=== PATIENT | female | born 1995 | race Caucasian/White ===

== ENCOUNTER 2024-09-19 08:23 | Emergency (ER) | payer MEDICAID, SELFPAY ==
[2024-09-19 08:24] VITALS: BMI 19.7
[2024-09-19 08:34] VITALS: BP 117/79; PULSE 119; RESP 15; TEMP 36.7; O2SAT 96
--- NOTE | 2024-09-19 08:42 | EDNOTE_ITS ---
<Statement entered by Sara Man MD - 09/19/24 15:15> As co-signing physician, I was present and available for consult prn. I concur with the plan and care as documented by the midlevel provider. Nausea/Vomit./Diarrhea-RME/HPI General Chief complaint: Nausea/Vomiting/Diarrhea Stated complaint: VOMITING 10 WEEKS Time Seen by Provider: 09/19/24 08:25 Source: patient Arrival date/time: 09/19/24 08:23 29-year-old female with no known medical history presents to the emergency room with a chief complaint of vomiting x 3 days. Patient states she is currently 10 weeks . Patient denies any vaginal bleeding, abdominal pain. Mode of arrival: ambulatory Limitations: no limitations Related Data Previous Rx's ?Medication ?Instructions ?Recorded docusate sodium 100 mg capsule 100 mg PO BID #60 caps 06/11/22 (Colace) ibuprofen 600 mg tablet 600 mg PO Q6H PRN pain #90 t abs 06/11/22 lanolin 50 % topical ointment 1 applic topical TID PRN skin 06/11/22 irritation #15 tubes ondansetron 4 mg disintegrating 4 mg PO Q8H PRN nausea and 09/19/24 tablet vomiting #14 tabs Allergies Allergy/AdvReac Type Severity Reaction Status Date / Time No Known Allergies Allergy Verified 09/19/24 08:24 Review of Systems Review of Systems Systems Reviewed: All systems reviewed, normal except as documented Constitutional Constitutional: Reports system reviewed and no additional complaints, except as documented, Denies fatigue, Denies fever(s), Denies headache(s) and Denies weakness Eyes Eyes: Reports system reviewed and no additional complaints, except as documented, Denies blurry vision and Denies change in vision ENT Ears, Nose, Mouth, and Throat: Reports system reviewed and no additional complaints, except as documented, Denies otalgia, Denies headache(s), Denies nasal congestion, Denies throat swelling and Denies vertigo Cardiovascular Cardiovascular: Reports system reviewed and no additional complaints, except as documented, Denies chest pain, Denies dyspnea and Denies dyspnea on exertion Respiratory Respiratory: Reports system reviewed and no additional complaints, except as documented, Denies chest congestion, Denies cough, Denies dyspnea, Denies dyspnea on exertion and Denies wheezing Gastrointestinal Gastrointestinal: Reports system reviewed and no additional complaints, except as documented, Denies abdominal pain, Denies cramping, Reports nausea and Reports vomiting Genitourinary Genitourinary: Reports system reviewed and no additional complaints, except as documented Musculoskeletal Musculoskeletal: Reports system reviewed and no additional complaints, except as documented and Denies back pain Integumentary/Breasts Skin/Breast: Reports system reviewed and no additional complaints, except as documented and Denies wounds Neurologic Neurologic: Reports system reviewed and no additional complaints, except as documented, Denies confusion, Denies headache(s), Denies lack of coordination, Denies vertigo and Denies weakness Psychiatric Psychiatric: Reports system reviewed and no additional complaints, except as documented, Denies anxiety, Denies confusion, Denies depression, Denies paranoia, Denies suicidal ideation and Denies tactile hallucinations Endocrine Endocrine: Reports system reviewed and no additional complaints, except as documented and Denies fatigue Hematologic/Lymphatic Hematologic/Lymphatic: Reports system reviewed and no additional complaints, except as documented and Denies lymphadenopathy Allergic/Immunologic Allergic/Immunologic: Reports system reviewed and no additional complaints, except as documented, Denies throat swelling, Denies urticaria and Denies wheezing ED Exam General Limitations: Present no limitations General appearance: Present alert and in no apparent distress Head Head exam: Present atraumatic Eye Eye exam: Present normal appearance, PERRL and EOMI ENT ENT exam: Present normal exam, normal oropharynx and mucous membranes moist Neck Neck exam: Present normal inspection, full ROM and trachea midline Chest Chest inspection: Present normal inspection and symmetric chest wall rise Respiratory Respiratory exam: Present normal lung sounds bilaterally Cardiovascular Cardiovascular exam: Present regular rate, normal rhythm and normal heart sounds Abdominal Exam Abdominal exam: Present soft and normal bowel sounds; Absent distention, tenderness, guarding, rebound or rigidity Extremities Exam Extremities exam: Present normal inspection and full ROM Back Exam Back exam: Present normal inspection and full ROM Neurological Exam Neurological exam: Present alert, oriented X3 and CN II-XII intact Psychiatric Psychiatric exam: Present normal affect and normal mood Skin Skin exam: Present warm, dry, intact and normal color Course Quality Measures none Orders Category Date Time Status Insert IV NOW Care 09/19/24 10:12 Completed US OB <= 14 weeks fetus Stat Exams 09/19/24 10:12 Completed US gall bladder Stat Exams 09/19/24 10:12 Completed CBC Stat Lab 09/19/24 08:58 Completed CMP [Comprehensive Metabolic Panel] Stat Lab 09/19/24 08:58 Completed UA, C/S IF [Urinalysis, C/S if Indicated] Stat Lab 09/19/24 08:55 Completed Ondansetron Inj [Zofran Inj] Med 09/19/24 13:17 Discontinued 4 mg IV X1 ONE Ondansetron Odt [Zofran Odt] Med 09/19/24 08:41 Discontinued 4 mg PO X1 ONE Sodium Chloride 0.9% 1000 ml [Ns] 1,000 ml Med 09/19/24 10:12 Discontinued IV 999 mls/hr Vital Signs Vital signs: Vital Signs Temperature 98.0 F 09/19/24 08:34 Pulse Rate 119 H 09/19/24 08:34 Respiratory Rate 15 09/19/24 08:34 Blood Pressure 117/79 09/19/24 08:34 Pulse Oximetry (%) 96 09/19/24 08:34 Oxygen Delivery Method Room Air 09/19/24 08:34 O2 saturation 96% within normal limits Nausea/Vomiting/Diarrhea MDM Narrative MDM Narrative:: 29-year-old female with no known medical history presents to the emergency room with a chief complaint of vomiting x 3 days. Patient states she is currently 10 weeks . Patient denies any vaginal bleeding, abdominal pain. Patient is hemodynamically stable and in no apparent distress Physical examination shows generalized abdominal pain with palpation. Patient states she has had multiple episodes of vomiting the last few days. CBC showed some leukocytosis. The patient's urine was negative and the leukocytosis can be due to her severe vomiting. CMP showed some hyponatremia. A liter of normal saline was given as well as some Zofran. Patient was reevaluated in 2 hours with significant improvement to her symptoms. Due to the elevated bilirubin and bilirubin in her urine and ultrasound of the gallbladder was completed and was within normal limits. An ultrasound of her was completed to rule out any molar or ectopic and at this time there was an empty gestational sac but radiologist recommends short-term follow-up. Patient was educated to return in the next 48 to 72 hours for recheck on her . At this time the patient denies any vaginal bleeding. Patient was discharged and educated to follow-up with primary care provider in the next 24 to 48 hours and return to the emergency room for any evidence of worsening signs or symptoms Patient data External records reviewed:: [facility] previous records Clinical information provided by:: patient Social determinants that could affect healthcare access:: none Patient has the following chronic illnesses:: No chronic illness How is presenting disease/condition affected by chronic disease/condition?: no chronic disease Evaluation data The following diagnostics were reviewed and interpreted by me:: lab results and radiology exam(s) Lab and/or radiology exams considered but not ordered:: Labs and radiology exams considered and ordered Interpretation Summary: N/A Medications / Prescriptions Medications / Prescriptions considered but not ordered:: Medication given Medication administrations:: Medication Administration History Discontinued Medications Sodium Chloride (Ns) 1,000 mls @ 999 mls/hr IV .Q1H1M ONE Stop: 09/19/24 11:12 Last Infusion: 09/19/24 11:30 Dose: Infused Documented By: Admin: 09/19/24 10:29 Dose: 999 mls/hr Documented By: SHAZIA Ondansetron HCl (Ondansetron Odt 4 Mg Tabrap) 4 mg PO X1 ONE; Protocol Stop: 09/19/24 08:42 Last Admin: 09/19/24 08:57 Dose: 4 mg Documented By: LUANA Ondansetron HCl (Ondansetron Inj 2 Mg/Ml Inj 2 Ml) 4 mg IV X1 ONE; Protocol Stop: 09/19/24 13:18 Last Admin: 09/19/24 13:24 Dose: 4 mg Documented By: SHAZIA Medication given Consultations Consultation(s) initiated? (list below): No Diagnosis Nausea Differential Diagnosis: traveler's diarrhea, food poisoning, gastroenteritis, dehydration and other (Hyperemesis gravidarum) Most likely diagnosis given after review of the tests above:: Hyperemesis gravidarum Admission Indicated Admission indicated?: not indicated Admission Request Was there a request for admission?: No Disposition Plan Disposition Plan: Discharge Discharge Attestation Discharge Attestation: The patient and all family members were given an opportunity to ask questions and understood the discharge instructions. Discharge instructions specifically effects, indications for sooner follow up or return to the emergency department, and the expected course of current diagnosis. Patient condition: Stable Discharge Plan Plan Patient Disposition: HOME (Self Care) Disposition Comment: Stable Prescriptions/Referrals Prescriptions/Med Rec: New ondansetron 4 mg tablet,disintegrating 4 mg PO Q8H PRN (Reason: nausea and vomiting) Qty: 14 0RF No Action docusate sodium [Colace] 100 mg capsule 100 mg PO BID Qty: 60 0RF ibuprofen 600 mg tablet 600 mg PO Q6H PRN (Reason: pain) Qty: 90 0RF lanolin 50 % ointment 1 applic topical TID PRN (Reason: skin irritation) Qty: 15 0RF Referrals: Abigail Castro PA-C [Primary Care Provider] - In 1 week Problem List Clinical Impression: Hyperemesis gravidarum Patient/Caregiver Discharge Instructions Education Materials: Severe Morning Sickness ..., ED Hyperemesis Gravidarum Additional Instructions: Please follow-up with your primary care provider in the next 24 to 48 hours. Medication was sent to your pharmacy to help you with your nausea and your vomiting. This medication seem to work during your stay here in the emergency room. Our radiologist recommends a repeat OB ultrasound ultrasound in the next 48 to 72 hours. For any evidence of worsening signs or symptoms return to the emergency room immediately Print Language: Burundian Stand Alone Forms: Sharon Award Info., Patient Portal Info Letter RAVINDER/KARINA Supervising Physician RAVINDER/KARINA Supervising Physician: Dr. MAN
[2024-09-19] MEDS: ONDANSETRON ODT 4 MG TABRAP PO (08:57)
[2024-09-19 09:09] LABS: Collection Type, Urine Clean Catch
[2024-09-19 09:17] LABS: Basophils % (Auto) 0 % (0-2.5); Eosinophils % (Auto) 0 % (0-10); Hematocrit 45.6 % (36.0-46.0); Hemoglobin 16.3 g/dL (12.0-16.0); Immature Granulocytes % (Auto) 0 % (0-0); Immature Granulocytes Auto 0.08 Thou/mm3 (0.00-0.00); Lymphocytes # (Auto) 0.5 Thou/mm3 (1.0-4.8); Lymphocytes % (Auto) 3 % (10-50); Mean Corpuscular HGB Conc 35.7 g/dl (31.0-37.0); Mean Corpuscular Hemoglobin 31.1 pg (25.0-35.0); Mean Corpuscular Volume 87 fL (80-100); Monocytes % (Auto) 6 % (0-12); Neutrophils # (Auto) 16.5 Thou/mm3 (1.8-7.7); Neutrophils % (Auto) 91 % (37-80); Nucleated Red Blood Cell % 0 /100 WBC (0); Platelet Count 341 Thou/mm3 (140-440); RDW Standard Deviation 35.7 fL (36.4-46.3); Red Blood Count 5.24 Miln/mm3 (4.00-5.20); White Blood Count 18.2 Thou/mm3 (3.6-11.0)
[2024-09-19 09:40] LABS: Alanine Aminotransferase 14 U/L (10-49); Albumin, Serum 5.9 gm/dL (3.5-5.0); Albumin/Globulin Ratio 1.9 (1.2-2.2); Alkaline Phosphatase 69 U/L (46-116); Anion Gap 20 (7-16); Aspartate Amino Transferase 17 U/L (0-34); BUN/Creatinine Ratio 19 Ratio (12-20); Bilirubin,Total 3.5 mg/dL (0.3-1.2); Blood Urea Nitrogen 19 mg/dL (9-23); Calcium 10.6 mg/dL (8.3-10.6); Calcium (Corrected) 10.6 mg/dL (8.5-10.1); Carbon Dioxide 17.5 mMol/L (20.0-31.0); Chloride 98 mMol/L (98-107); Estimated Creatinine Clearance 65.4 mL/min (>60); Globulin 3.1 gm/dL (2.3-3.5); Glucose 198 mg/dL (74-106); Osmolality,Calculated 278 (275-295); Potassium 3.4 mMol/L (3.4-5.1); Sodium 135 mMol/L (136-145); eGFR > 60 See Note
[2024-09-19 09:55] LABS: Bilirubin,Urine 1+ (Negative); Blood,Urine Trace (Negative); Clarity,Urine Clear (Clear/Hazy); Color,Urine Yellow (Lt Yel-Yel); Culture Indicated,Urine Not Indicated; Glucose, Urine Negative (Negative); Hyaline Casts,Urine 3 /hpf (0-1); Ketones,Urine 4+ (Negative); Leukocyte Esterase,Urine Negative (Negative); Nitrite,Urine Negative (Negative); Protein,Urine 2+ (Neg - Trace); RBC,Urine 5 /hpf (0-3); Specific Gravity,Urine 1.027 (1.001-1.035); Squamous Epithelial Cell,Urine 4 /hpf (0-5); Urobilinogen,Urine Negative mg/dL (0.0-1.0); WBC,Urine 1 /hpf (0-5)
--- NOTE | 2024-09-19 10:12 | XR_ITS ---
Examination: Complete OB ultrasound, less than 14 weeks, transabdominal Date and time of exam: September 19, 2024 1150 hours INDICATIONS: Left upper abdominal pain and vomiting beginning 3 hours ago Technique: Obstetrical ultrasound images less than 14 weeks performed via transabdominal imaging Findings: Uterus 9.4 cm with intrauterine gestational sac 1.5 cm corresponding to 6 weeks 2 days gestational age No pole, no cardiac activity Right ovary 2.5 cm arterial flow Left ovary 2.5 cm arterial flow IMPRESSION: Empty intrauterine gestational sac corresponding to 6 weeks 2 days gestational age Recommend transvaginal pelvic sonography follow-up to confirm viability
--- NOTE | 2024-09-19 10:12 | XR_ITS ---
Examination: Abdomen sonogram, Limited Date and time of exam: September 19, 2024 at 1133 hours INDICATIONS: Left upper abdominal pain and vomiting beginning 3 days ago Technique: Real-time mosher scale transabdominal sonographic images of the upper abdomen obtained. Findings: Normal gallbladder Normal common bile duct 0.2 cm Pancreatic head 1.4 cm Liver 11.3 cm fatty infiltration Normal hepatopedal portal venous flow Patent IVC IMPRESSION: Normal gallbladder Fatty liver
[2024-09-19] MEDS: SODIUM CHLORIDE 0.9% 1000 ML 1,000 ML 999 ML IV (10:29)
[2024-09-19 10:45] VITALS: BP 135/83; PULSE 74; RESP 15; TEMP 36.8; O2SAT 99
[2024-09-19 12:00] VITALS: BP 116/68; PULSE 78; RESP 17; TEMP 37.1; O2SAT 99
[2024-09-19] MEDS: ONDANSETRON INJ 2 MG/ML INJ 2 ML 4 MG IV (13:24)
== END 2024-09-19 14:17 | disposition home or self-care (01) ==
PROVIDERS: Nurse Practitioner Family; Emergency Provider Emergency Medicine; PCP Physician Assistant
DX: O21.0 Mild hyperemesis gravidarum (principal); Z3A.10 10 weeks gestation of pregnancy
CPT/HCPCS: 36415; 76705; 76801; 80053; 81001; 85025; 96361; 96374; 99284; J2405; J7030; Q0162

== ENCOUNTER 2025-04-24 14:53 | Observation (INO) | payer MEDICAID, SELFPAY ==
[2025-04-24 14:55] VITALS: BP 112/69; RESP 100; RESP 16; TEMP 37
[2025-04-24 15:26] LABS: Collection Type, Urine Clean Catch
[2025-04-24 15:30] VITALS: BMI 25.4
[2025-04-24 15:40] LABS: ROM Kit Lot # 58106258
[2025-04-24 15:41] LABS: ROM Kit Exp Date# 04/11/28; ROM Swab Mixed By: ASTOA1; Rupture of Fetal Membranes Negative (Negative); Swb Mxed in Solvent 1 min? Yes
[2025-04-24 15:49] VITALS: BP 112/69; PULSE 116
[2025-04-24 16:22] LABS: Bacteria,Urine Rare; Bilirubin,Urine Negative (Negative); Blood,Urine Negative (Negative); Color,Urine Yellow (Lt Yel-Yel); Glucose, Urine Negative (Negative); Ketones,Urine Trace (Negative); Leukocyte Esterase,Urine Positive (Negative); Nitrite,Urine Negative (Negative); PH,Urine 6.0 (5.0-7.0); Protein,Urine 1+ (Neg - Trace); RBC,Urine 2 /hpf (0-3); Specific Gravity,Urine 1.030 (1.001-1.035); Squamous Epithelial Cell,Urine 8 /hpf (0-5); Urobilinogen,Urine 2.0 mg/dL (0.0-1.0); WBC,Urine 7 /hpf (0-5)
[2025-04-24 16:30] LABS: Amphetamine/Metham Scrn,Ur OB Negative (Negative); Benzoylecgonine Screen, Ur OB Negative (Negative); Opiate Screen,Urine OB Negative (Negative); THC Screen,Urine OB Positive (Negative)
[2025-04-24 16:31] LABS: THC U Confirm* See Sep Rpt
[2025-04-24 16:37] LABS: Clarity,Urine Hazy (Clear/Hazy)
[2025-04-25 11:41] LABS: BVAG Candida Positive (Negative); Bacterial Vaginosis Markers Negative (Negative); Candida glabrata Negative (Negative); Candida krusei PCR Negative (Negative); Trichomonas Negative (Negative)
== END 2025-04-24 17:05 | disposition home or self-care (01) ==
PROVIDERS: Admitting Provider Obstetrics & Gynecology; Visit Provider Obstetrics & Gynecology
DX: Z34.90 Encounter for supervision of normal pregnancy, unspecified, unspecified trimester (principal); Z3A.00 Weeks of gestation of pregnancy not specified
CPT/HCPCS: 59025; 59899; 80307; 81001; 81514; 84112; 87086

== ENCOUNTER 2025-05-02 19:19 | Observation (INO) | payer MEDICAID, SELFPAY ==
[2025-05-02] VITALS (27 sets, daily range): BP systolic 118; BP diastolic 72; PULSE 72–171; RESP 18–98; TEMP 36.7; O2SAT 83–100; BMI 25.0
[2025-05-02] MEDS: FLUCONAZOLE 150 MG TABLET PO (20:49)
[2025-05-02 22:30] LABS: ROM Kit Exp Date# 04/11/28; ROM Kit Lot # 58106258; ROM Swab Mixed By: CARMP2; Rupture of Fetal Membranes Negative (Negative); Swb Mxed in Solvent 1 min? Yes
== END 2025-05-02 23:05 | disposition home or self-care (01) ==
PROVIDERS: Admitting Provider Obstetrics & Gynecology; Visit Provider Obstetrics & Gynecology
DX: O47.1 False labor at or after 37 completed weeks of gestation (principal); Z3A.38 38 weeks gestation of pregnancy
CPT/HCPCS: 59025; 59899; 84112; 87081; A9270

== ENCOUNTER 2025-05-18 11:13 | Inpatient (IN) | payer MEDICAID, SELFPAY ==
[2025-05-18] VITALS (49 sets, daily range): BP systolic 110–131; BP diastolic 60–77; PULSE 68–214; RESP 16–97; TEMP 36.6–37.2; O2SAT 92–100; BMI 25.6
--- NOTE | 2025-05-18 11:37 | XR_ITS ---
Examination: Complete OB ultrasound greater than 14 weeks Date and time of exam: 05/18/2025 at 11:50 a.m. CLINICAL INDICATION: Vaginal bleeding Findings: Viable intrauterine single fetus with single amniotic sac The single fetus is in cephalic presentation. The bladder and kidneys and stomach and spine are all seen and appear normal. Three-vessel umbilical cord is noted. Placenta is located along the anterior wall of the mid body of uterus, there are prominent basal plate calcifications indicating a grade 3 placenta. heart rates 126 bpm estimated weight is 3669 g The biparietal diameter, head circumference, abdominal circumference and femur length are all consistent with gestational age of 39 weeks 1 day. Estimated date of delivery is May 24, 2025 . Impression: 1 normal-appearing single intrauterine fetus, currently 39 weeks 1 day gestational age, in cephalic presentation 2. The study is entirely normal. 3. The both right and left ovaries are obscured by overlying bowel gas and are not well visualized.
[2025-05-18 15:44] LABS: Basophils # (Auto) 0.0 Thou/mm3 (0.0-0.2); Basophils % (Auto) 0 % (0-2.5); Eosinophils # (Auto) 0.0 Thou/mm3 (0.0-0.5); Eosinophils % (Auto) 0 % (0-10); Hematocrit 33.0 % (36.0-46.0); Hemoglobin 11.1 g/dL (12.0-16.0); Immature Granulocytes Auto 0.06 Thou/mm3 (0.00-0.00); Lymphocytes # (Auto) 1.4 Thou/mm3 (1.0-4.8); Lymphocytes % (Auto) 13 % (10-50); Mean Corpuscular HGB Conc 33.6 g/dl (31.0-37.0); Mean Corpuscular Hemoglobin 29.5 pg (25.0-35.0); Mean Corpuscular Volume 88 fL (80-100); Monocytes # (Auto) 0.9 Thou/mm3 (0.0-0.8); Monocytes % (Auto) 8 % (0-12); Neutrophils # (Auto) 8.3 Thou/mm3 (1.8-7.7); Neutrophils % (Auto) 78 % (37-80); Nucleated Red Blood Cell # 0.00 Thou/mm3 (0.00-0.00); Nucleated Red Blood Cell % 0 /100 WBC (0); Platelet Count 294 Thou/mm3 (140-440); RDW Standard Deviation 40.6 fL (36.4-46.3); Red Blood Count 3.76 Miln/mm3 (4.00-5.20); White Blood Count 10.7 Thou/mm3 (3.6-11.0)
--- NOTE | 2025-05-18 15:55 | PD.LDHP ---
Documentation for date of: 05/18/25 OB Labor/Induct. HPI History of Present Illness Chief complaint: Vaginal bleeding, sent in from provider : 5 Para: 2 Term pregnancies: 2 pregnancies: 0 Living children: 2 History of Abortions: Spontaneous and Elective: 2 History of Vaginal deliveries: 2 History of sections: No History of : No FÁTIMA: 05/13/25 Gestational Age (weeks): 40 Gestational Age (days): 5 History of present illness: Patient is a 29-year-old -0-2-[address] Villarreal office where she where she has been receiving her care exclusively and told Dr. Rodriguez she had some bleeding after intercourse. He told her to come to labor and delivery. Patient is 40 5/7 weeks . Patient was 2 to 3 cm dilated on presentation. She has a history of vaginal delivery x 2 without complication in the past. She does not desire an epidural. History of Present Dating criteria: LMP confirmed by 2nd trimester US Adequate Care: Yes Ultrasounds: normal mid trimester US Obstetrical complications: none Medical complications: none Labs Maternal Blood Type: A Neg Labs: Positive: Rubella Titre, Negative: RPR, Hepatitis B, HIV, Chlamydia and Gonorrhea and Unknown: Herpes Type 1, Herpes Type 2, Group Beta Strep and Covid-19 Past Medical History Surgical History SURGICAL: Negative Section Past Medical History Comments PMH COMMENT: Patient denies any chronic medical problems including asthma diabetes or hypertension. She states she fell when she was 14 years old and compression fracture had a compression fraction of her back and wore a brace for 6 months but did not have surgery. She had a in 2018 of a male weighing 6 pounds 11 ounces she had an of another male in 2022 weighing 7 pounds 13 ounces. She denies problems with either delivery. Meds Home Medications and Allergies Home Medications ?Medication ?Instructions ?Recorded ?Confirmed ?Type No Known Home Medications 05/02/25 05/18/25 History Allergies Allergy/AdvReac Type Severity Reaction Status Date / Time No Known Allergies Allergy Verified 05/18/25 11:21 OB Exam Physical Exam Vital signs: Temp Pulse Resp BP Pulse Ox 97.9 F 80 18 124/77 98 05/18/25 11:21 05/18/25 11:21 05/18/25 11:21 05/18/25 11:21 05/18/25 13:33 Detailed Labor and Delivery Exam Effacement (%): 80 Cervix position: mid station: -2 Consistency: medium Presentation: Vertex Membranes: intact monitor accelerations: 15x15 monitor decelerations: None Contraction frequency (min): Every 3 to 5 minutes Tachysystole: No OB Results Labs 05/18/25 13:40 OB Assessment & Plan Assessment and Plan (1) Supervision of high risk in third trimester: Status: Acute Assessment and plan: Admit patient. Pain medication if desired. Look up group B strep (2) Rh negative status during : Status: Acute Assessment and plan: Patient status post RhoGAM during . Additional Plan Induction method: AROM Plan: anticipate NVD (2) Rh negative status during Qualifiers: Trimester: third trimester Qualified Code(s): O26.893 - Other specified related conditions, third trimester; Z67.91 - Unspecified blood type, Rh negative
[2025-05-18 16:43] LABS: Syphilis Reactive (Nonreactive)
[2025-05-18 16:44] LABS: MHATP/TP-PA* See Sep Rpt
--- NOTE | 2025-05-18 17:25 | PD.EVENT ---
Documentation for date of: 05/18/25 Event Note Event Note: Examined patient and performed in a ROM at 1645 clear fluid. Patient's cervix is 4 to 5 cm 80% -2 mid. IUPC placed. Anticipate .
[2025-05-18] MEDS: OXYTOCIN in NS 30 units 30 UNIT/500 ML BAG IV (18:42)
[2025-05-18] MEDS: OXYTOCIN in NS 20 units 20 UNIT/1,000 ML BAG 125 UNIT IV (19:20)
[2025-05-18] MEDS: LIDOCAINE HCL 1% 20 ML VIAL INFL (19:25)
[2025-05-18] MEDS: BENZO/LANO/ALOE (Dermoplast) 60 GM CAN 1 SPRAY TOP (19:35)
[2025-05-18] MEDS: IBUPROFEN TAB 400 MG TABLET 800 MG PO (19:36)
--- NOTE | 2025-05-18 21:48 | OBDSUM_ITS ---
Data (Álvarez) Data Hx Section: No Maternal Blood Type: A Neg Rubella Titre: Positive RPR: Non-reactive Labs: Negative: RPR, Hepatitis B, HIV, Chlamydia, Gonorrhea and Group Beta Strep : 5 Term: 2 : 0 Livin Abortions: Spontaneous & Theraputic: 2 Delivery Data (Álvarez) Labor Data Initiation of labor: Spontaneous Induction/Augmentation Agent: Pitocin ROM date: 05/18/25 ROM time: 16:48 Amniotic membrane rupture type: Spontaneous Amniotic fluid description: Clear Delivery Data EDC: 05/13/25 EDC calculated by:: LMP/early US confirmation Date of arrival to unit: 05/18/25 Onset of labor date: 05/18/25 Onset of labor time: 16:00 Complete dilation date: 05/18/25 Complete dilation time: 19:06 delivery date: 05/18/25 delivery time: 19:09 Gestational age (weeks): 40 Gestational age (days): 5 Placenta delivery date: 05/18/25 Placenta delivery time: 19:14 Stage 1 total time: Labor - Stage 1 Duration 3 hours and 6 minutes Delivered by: L[facility] ([facility]) Delivery nurse: Lsia Turcios RN [place] nurse: Simin Alexandra RN Robotics Mechanic at delivery: No Support person(s) at delivery: father of baby, pt's mother Other staff at delivery: Lu Lucero RN, Shanon Villaseñor RN, Nathalie Koroma RN, Guadalupe customer service engineer Method Delivery method: Normal Vaginal Delivery Presentation: Vertex position: OA Anesthesia Type Anesthesia Type: Local Anesthesia type: None Delivery Room Medications Delivery room medications: Pitocin 20 u IV Placenta Placenta delivery description: Spontaneous Cord blood sent to lab: Yes cord blood collection: Cord Blood Type Episiotomy Episiotomy description: None Lacerations #1: Labial: First-degree right labia minora laceration Perineal repair Sutures used for repair: 4.0 Chromic EBL Estimated blood loss (ml): 75 Umbilical Cord cord description: 3 Vessels, Nuchal Cord and True Knot Additional Procedures The patient is a 29-year-old -0-2-2 at 40 weeks 5/7 days presented to triage with some vaginal bleeding and was 2 to 3 cm dilated. As she was postdates, she was admitted. Once she was in a room, she was reexamined and was 4 to 5 cm dilated. The patient did not desire epidural and desired to go natural. I performed an amniotomy at approximately 1645 and placed an IUPC. The patient began getting quite uncomfortable around 1845. She was complete at 1900. She then pushed through 1-2 contractions delivering a liveborn female. Findings: Liveborn female in the [place]ANCIS[place] presentation with a loose nuchal cord x 1 and a true knot in her cord x 1. No meconium. Apgars were 8 and 9, weight was 7 pounds 2 ounces. As the baby was vigorous at , the baby was placed directly on mother's chest and delayed cord clamping was performed for approximately 3 minutes. The cord was then clamped and cut and the went to the warmer for evaluation and measurements and then was placed back on her mother's chest. The placenta was complete ,spontaneous, and grossly normal. The patient sustained a very small right labial minora laceration repaired with a single [id number] suture of 4-0 chromic under local anesthesia. Complications were none. Condition: both mom and were in stable condition the delivery room. EBL was 75 cc. Complications Complications: None Data (Álvarez) Data order: 1 's gender: Female Identification band number: [id number] weight (gms): 3230 g Weight (pounds): 7 lbs and 1.9 ozs [place] length: 49.53 cm 1 minute: 8 5 minutes: 9
[2025-05-18 22:54] LABS: Amphetamine/Metham Scrn,Ur OB Negative (Negative); Benzoylecgonine Screen, Ur OB Negative (Negative); Opiate Screen,Urine OB Negative (Negative); THC Screen,Urine OB Negative (Negative)
[2025-05-19 00:29] VITALS: BP 107/66; PULSE 86; RESP 12; TEMP 36.8; O2SAT 97
[2025-05-19] MEDS: DOCUSATE SOD 100 MG CAPSULE PO ×3 (00:47→20:49)
[2025-05-19 04:23] VITALS: BP 107/64; PULSE 78; RESP 14; TEMP 37.1; O2SAT 97
[2025-05-19 05:48] LABS: Basophils # (Auto) 0.1 Thou/mm3 (0.0-0.2); Basophils % (Auto) 0 % (0-2.5); Eosinophils # (Auto) 0.0 Thou/mm3 (0.0-0.5); Eosinophils % (Auto) 0 % (0-10); Hematocrit 31.2 % (36.0-46.0); Hemoglobin 10.4 g/dL (12.0-16.0); Immature Granulocytes Auto 0.05 Thou/mm3 (0.00-0.00); Lymphocytes # (Auto) 1.5 Thou/mm3 (1.0-4.8); Lymphocytes % (Auto) 12 % (10-50); Mean Corpuscular HGB Conc 33.3 g/dl (31.0-37.0); Mean Corpuscular Hemoglobin 29.4 pg (25.0-35.0); Mean Corpuscular Volume 88 fL (80-100); Monocytes # (Auto) 1.2 Thou/mm3 (0.0-0.8); Monocytes % (Auto) 10 % (0-12); Neutrophils # (Auto) 9.5 Thou/mm3 (1.8-7.7); Neutrophils % (Auto) 77 % (37-80); Nucleated Red Blood Cell # 0.00 Thou/mm3 (0.00-0.00); Nucleated Red Blood Cell % 0 /100 WBC (0); Platelet Count 258 Thou/mm3 (140-440); RDW Standard Deviation 40.4 fL (36.4-46.3); Red Blood Count 3.54 Miln/mm3 (4.00-5.20); White Blood Count 12.3 Thou/mm3 (3.6-11.0)
[2025-05-19 08:09] VITALS: BP 112/66; PULSE 77; RESP 16; TEMP 36.7; O2SAT 97
[2025-05-19] MEDS: IBUPROFEN TAB 400 MG TABLET 800 MG PO ×2 (08:52→20:49)
--- NOTE | 2025-05-19 09:05 | PD.LDPPPRG ---
Subjective Subjective Interval history: Delivery type: at 1800 last night Patient doing well this morning. No acute complaints. Ambulating, tolerating p.o., and voiding without difficulty. HTN/Pre-E screen negative: No CP, SOB, RASCON, visual changes, RUQ pain. : Yes Lochia: diminishing Bowel: Flatus + / BM + UOP: Voiding freely Exam Vital Signs Temp Pulse Resp BP Pulse Ox O2 Del Method 98.0 F 77 16 112/66 97 Room Air 05/19/25 08:09 05/19/25 08:09 05/19/25 08:09 05/19/25 08:09 05/19/25 08:09 05/19/25 08:09 Constitutional Constitutional: no acute distress Routine HEENT Exam Head: Present normocephalic and atraumatic Eye: Present EOMI and PERRL ENT: Present mucous membranes moist Routine Neck Exam Neck: Present supple and trachea midline Routine Respiratory Exam Respiratory: Present chest non-tender, lungs clear, normal breath sounds and no resp distress Routine Cardiovascular Exam Cardiovascular: Present RRR Routine Abdominal Exam Abdominal: Present soft and normoactive bowel sounds Routine Extremities Exam Extremities: Present full ROM Routine Skin Exam Skin: Present intact, dry and warm Routine Neurological Exam Neurological: Present alert, oriented X3 and CN II-XII intact Routine Psychiatric Exam Psychiatric: Present normal affect and normal thought process Objective Labs 05/19/25 05:09 Labs: Laboratory Results - last 24 hr 05/18/25 05/18/25 05/19/25 13:40 20:30 05:09 WBC 10.7 12.3 H RBC 3.76 L 3.54 L Hgb 11.1 L 10.4 L Hct 33.0 L 31.2 L MCV 88 88 MCH 29.5 29.4 MCHC 33.6 33.3 RDW Std Deviation 40.6 40.4 Plt Count 294 258 D Neut % (Auto) 78 77 Lymph % (Auto) 13 12 [place] % (Auto) 8 10 Eos % (Auto) 0 0 Baso % (Auto) 0 0 Neut # (Auto) 8.3 H 9.5 H Lymph # (Auto) 1.4 1.5 [place] # (Auto) 0.9 H 1.2 H Eos # (Auto) 0.0 0.0 Baso # (Auto) 0.0 0.1 Immature Gran # (Auto) 0.06 H 0.05 H Absolute Nucleated RBC 0.00 0.00 Immature Gran % 1 H 0 Nucleated RBC % 0 0 Urine Opiates Screen Negative U Amphetamin/Meth Scrn Negative U Cocaine Metab Screen Negative U Marijuana (THC) Screen Negative Syphilis Serology Reactive A Blood Type A Negative Antibody Screen NEGATIVE Blood Bank Wristband ID Yes Assessment & Plan Problem List (1) Supervision of high risk in third trimester: Status: Resolved (2) Rh negative status during : Status: Acute (3) Vaginal delivery: Status: Acute Assessment and plan: 1. Continue routine /post-op care 2. Labs reviewed, cbc appropriate 3. Remove dressing/Schulz 4. Encourage to ambulate, shower 5. Encourage PO intake, breast feeding 6. Anticipate discharge home at 24 hours Time Spent With Patient Time: Total time spent is greater than 50% in coordination of care (as documented) at patient's floor/unit and/or counseling patient:
--- NOTE | 2025-05-19 09:07 | PD.LDDS ---
DS: Providers Provider Date of admission: 05/18/25 13:47 Primary care physician: Physician No Primary/Family Admitting Provider: Lori Ca [facility] ([facility]) Attending Provider on Admission: Dominic Ruvalcaba MD Consults: 05/18/25 20:17 Referral Routine Comment: Attending Provider on DC: Dominic Ruvalcaba MD Discharging Provider: Dominic Ruvalcaba MD DS: Diagnosis Discharge Diagnosis (1) Vaginal delivery: Status: Acute (2) Rh negative status during : Status: Acute (3) care following vaginal delivery: Status: Acute Problem List Completed Was Problem List Reviewed/Reconciled?: Yes Summary/Hosp Course Brief History: Patient is a 29-year-old -0-2-[address] Villarreal office where she where she has been receiving her care exclusively and told Dr. Rodriguez she had some bleeding after intercourse. He told her to come to labor and delivery. Patient is 40 5/7 weeks . Patient was 2 to 3 cm dilated on presentation. She has a history of vaginal delivery x 2 without complication in the past. She does not desire an epidural. Peripartum Data Delivery Method: Normal Vaginal Delivery Episiotomy Description: None Time Spent with Patient Time attestation: Total time spent providing and/or coordinating discharge services: Exam Vital Signs Temp Pulse Resp BP Pulse Ox O2 Del Method 98.0 F 77 16 112/66 97 Room Air 05/19/25 08:09 05/19/25 08:09 05/19/25 08:09 05/19/25 08:09 05/19/25 08:09 05/19/25 08:09 Discharge Plan Plan Patient Disposition: HOME (Self Care) Disposition Comment: Please see Dr Villarreal for visit Patient condition on transfer: Stable Prescriptions/Referrals Prescriptions/Med Rec: New docusate sodium [Stool Softener] 100 mg capsule 100 mg PO QDAY 30 Days Qty: 30 0RF ibuprofen 600 mg tablet 600 mg PO Q6H MDD 4 PRN (Reason: fever or pain) 10 Days Qty: 40 0RF Referrals: No Primary/Family,Physician [Primary Care Provider] Tavo Villarreal MD [Referring Provider, Obstetrics] Patient/Caregiver Discharge Instructions Education Materials: Expressing Your Milk, After Delivery [place] Concerns, Breast Care After , Nutrition While , Understanding Depression, : Caring for Yourself, Feel Healthy After, Delivery After Stay Fit Print Language: Cymro Stand Alone Forms: Sharon Award Info., Patient Portal Info Letter Discharge Order Discharge Orders: Discharge (Routine); Ordered 05/19/25 Ordered By: Dominic Ruvalcaba Planned Discharge Date 05/19/25 (2) Rh negative status during Qualifiers: Trimester: third trimester Qualified Code(s): O26.893 - Other specified related conditions, third trimester; Z67.91 - Unspecified blood type, Rh negative
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
--- NOTE | 2025-05-19 09:31 | PC.NURSE ---
Cleared by dialysis social worker
[2025-05-19 11:26] VITALS: BP 112/75; PULSE 79; RESP 16; TEMP 36.7; O2SAT 97
[2025-05-19 15:59] VITALS: BP 101/62; PULSE 83; RESP 17; TEMP 36.8; O2SAT 99
--- NOTE | 2025-05-19 21:09 | PC.NURSE ---
Abhijit from lab called this nurse regarding patient's syphilis test which resulted quantitative RPR is non-reactive and TPA is reactive. (Dr. Ruvalcaba) made aware.
[2025-05-20 04:00] VITALS: BP 96/56; PULSE 83; RESP 18; TEMP 36.8; O2SAT 95
[2025-05-20 08:50] VITALS: BP 107/71; PULSE 99; RESP 16; TEMP 37; O2SAT 95
[2025-05-20] MEDS: DOCUSATE SOD 100 MG CAPSULE PO (08:57)
== END 2025-05-20 12:35 | disposition home or self-care (01) | DRG 560 ==
LOC: S4SX 20:11 → S4NX 20:21
PROVIDERS: Admitting Provider Obstetrics & Gynecology; Visit Provider Obstetrics & Gynecology
DX: O48.0 Post-term pregnancy (principal); O26.893 Other specified pregnancy related conditions, third trimester; Z67.11 Type A blood, Rh negative; Z3A.40 40 weeks gestation of pregnancy; Z37.0 Single live birth; O70.0 First degree perineal laceration during delivery; O69.81X0 Labor and delivery complicated by cord around neck, without compression, not applicable or unspecified
CPT/HCPCS: 36415; 59025; 59409; 76805; 80307; 85025; 86780; 86850; 86900; 86901; 94762; J2590; J3490; A9270

== ENCOUNTER 2025-05-25 15:33 | Emergency (ER) | payer MEDICAID, SELFPAY ==
[2025-05-25 15:49] VITALS: BP 142/82; PULSE 70; RESP 16; TEMP 37.5; O2SAT 97; BMI 23.8
--- NOTE | 2025-05-25 15:50 | XR_ITS ---
Examination: Venous duplex lower extremity sonogram, bilateral. Date and time of exam: May 25, 2025, 1607 hours INDICATIONS: Bilateral leg cramps 3 days 1 week Technique: Multiple sonographic images of the deep venous system have been obtained. B-mode/2-D grayscale imaging of vascular structures and Doppler spectral analysis (waveforms) and color performed Both legs are examined. Findings: Deep venous systems do not demonstrate abnormal echogenicity. All visualized deep veins exhibit compressibility. All visualized deep veins exhibit augmentation. Impression: Negative for deep vein thrombosis
--- NOTE | 2025-05-25 15:51 | PD.EDRME ---
Rapid Medical Screening Exam RME Arrival date/time: 05/25/25 15:33 29-year-old female presents to the Emergency Department today stating she is having abdominal cramping and pelvic cramping patient reports that she gave approximate 1 week ago Chief Complaint: Abdominal Pain Vital signs reviewed by provider: Yes Exam: On exam patient well-appearing does not appear ill or toxic Clinical Impression: Lab work and imaging obtained
--- NOTE | 2025-05-25 16:50 | XR_ITS ---
Examination: Pelvic ultrasound, transabdominal, complete Technique: Transabdominal ultrasound of the pelvis performed using grayscale imaging Date and time of exam: May 25, 2025, 1651 hours INDICATIONS: Pelvic cramping today, status post 1 week ago FINDINGS: Uterus 13.5 cm Thickened endometrium 0.6 cm in the fundal region, 4.06 x 1.91 x 2.97 in the lower uterine segment Right ovary 2.3 cm arterial flow Left ovary 2.8 cm arterial flow IMPRESSION: Recommend transvaginal pelvic sonography follow-up to confirm retained products of conception in the lower uterine segment
[2025-05-25 17:44] LABS: Basophils # (Auto) 0.1 Thou/mm3 (0.0-0.2); Basophils % (Auto) 1 % (0-2.5); Eosinophils # (Auto) 0.2 Thou/mm3 (0.0-0.5); Eosinophils % (Auto) 2 % (0-10); Hematocrit 38.8 % (36.0-46.0); Hemoglobin 12.4 g/dL (12.0-16.0); Immature Granulocytes Auto 0.05 Thou/mm3 (0.00-0.00); Lymphocytes # (Auto) 1.4 Thou/mm3 (1.0-4.8); Lymphocytes % (Auto) 15 % (10-50); Mean Corpuscular HGB Conc 32.0 g/dl (31.0-37.0); Mean Corpuscular Hemoglobin 28.8 pg (25.0-35.0); Mean Corpuscular Volume 90 fL (80-100); Monocytes # (Auto) 0.7 Thou/mm3 (0.0-0.8); Monocytes % (Auto) 8 % (0-12); Neutrophils # (Auto) 7.1 Thou/mm3 (1.8-7.7); Neutrophils % (Auto) 74 % (37-80); Nucleated Red Blood Cell # 0.00 Thou/mm3 (0.00-0.00); Nucleated Red Blood Cell % 0 /100 WBC (0); Platelet Count 390 Thou/mm3 (140-440); RDW Standard Deviation 42.3 fL (36.4-46.3); Red Blood Count 4.30 Miln/mm3 (4.00-5.20); White Blood Count 9.6 Thou/mm3 (3.6-11.0)
[2025-05-25 18:05] LABS: Alanine Aminotransferase 17 U/L (10-49); Albumin, Serum 4.4 gm/dL (3.5-5.0); Albumin/Globulin Ratio 1.6 (1.2-2.2); Alkaline Phosphatase 156 U/L (46-116); Anion Gap 12 (7-16); Aspartate Amino Transferase 20 U/L (0-34); BUN/Creatinine Ratio 17 Ratio (12-20); Bilirubin,Total 0.8 mg/dL (0.3-1.2); Blood Urea Nitrogen 10 mg/dL (9-23); Calcium 8.9 mg/dL (8.3-10.6); Calcium (Corrected) 8.9 mg/dL (8.5-10.1); Carbon Dioxide 23.2 mMol/L (20.0-31.0); Chloride 110 mMol/L (98-107); Creatinine (Component) 0.6 mg/dL (0.6-1.3); Estimated Creatinine Clearance 111.4 mL/min (>60); Globulin 2.8 gm/dL (2.3-3.5); Glucose 71 mg/dL (74-106); Osmolality,Calculated 285 (275-295); Potassium 3.9 mMol/L (3.4-5.1); Sodium 145 mMol/L (136-145); Total Protein 7.2 gm/dL (5.7-8.2); eGFR > 60 See Note
--- NOTE | 2025-05-25 19:25 | PD.EDABDPN ---
ED Abdominal Pain RME/HPI General Chief Complaint: Abdominal Pain Stated complaint: ABD & CALF CRAMPING S/P DELIVERY 1 [facility] Time seen by provider: 05/25/25 17:48 Arrival date/time: 05/25/25 15:33 29-year-old female patient 1 week , spontaneous normal vaginal delivery, came in for evaluation regarding pelvic cramping and right lower leg cramping. This been ongoing getting worse today. Patient continues to have vaginal discharges described as pinkish in color. Denies any foul-smelling discharge denies any fever denies any cough denies any abdominal pain denies any other complaints no medication was taken prior to ER visit. RME / HPI RME / HPI narrative: 05/25/25 15:33 29-year-old female presents to the Emergency Department today stating she is having abdominal cramping and pelvic cramping patient reports that she gave approximate 1 week ago Exam: On exam patient well-appearing does not appear ill or toxic Impression: Lab work and imaging obtained Related Data Previous Rx's ?Medication ?Instructions ?Recorded docusate sodium 100 mg capsule 100 mg PO QDAY 30 days #30 caps 05/19/25 (Stool Softener) ibuprofen 600 mg tablet 600 mg PO Q6H PRN fever or pain 10 05/19/25 days #40 tabs Allergies Allergy/AdvReac Type Severity Reaction Status Date / Time No Known Allergies Allergy Verified 05/25/25 15:35 Review of Systems Review of Systems Narrative Review of Systems: Review of system reviewed and within normal limits except mentioned in HPI ED Exam Narrative Physical exam: VITAL SIGNS: Reviewed. GENERAL APPEARANCE: Alert and interactive, follows commands, no acute distress, HEAD AND FACE: Non-traumatic. ENT: PERRL, pink conjunctivitis, eyelid no trauma, Mucous membrane moist. NECK: Supple, nontender, no nuchal rigidity. CHEST: No tenderness, no crepitus, no paradoxical movement, no retractions. LUNGS: Clear, well ventilated, symmetric, no rales, no wheezing, no ronchi, no stridor, good breath sounds bilaterally. HEART: Regular rate, regular rhythm, no murmur, no gallops. ABDOMEN: Soft, positive bowel sounds, nondistended, no guarding, nontender, no rebound, no masses, RECTAL: Deferred. GENITAL: Deferred. NEUROLOGICAL: Gross motor function intact sensory function intact, Appropriate for age. MUSCULOSKELETAL: low back nontender, full range of motion. EXTREMITIES: Nontender, full range of motion. SKIN: Color pink, dry, no rash, no lacerations, no abrasions, no contusions. LYMPHATICS: Deferred. Course Quality Measures none Orders Category Date Time Status US pelvic complete Stat Exams 05/25/25 16:50 Completed US venous doppler LE BI Stat Exams 05/25/25 15:50 Completed CBC Stat Lab 05/25/25 17:11 Completed CMP [Comprehensive Metabolic Panel] Stat Lab 05/25/25 17:11 Completed Vital Signs Vital signs: Vital Signs Temperature 99.5 F 05/25/25 15:49 Pulse Rate 70 05/25/25 15:49 Respiratory Rate 16 05/25/25 15:49 Blood Pressure 142/82 H 05/25/25 15:49 Pulse Oximetry (%) 97 05/25/25 15:49 Oxygen Delivery Method Room Air 05/25/25 15:49 Abdominal Pain MDM MDM Narrative MDM Narrative:: 29-year-old female patient 1 week , spontaneous normal vaginal delivery, came in for evaluation regarding pelvic cramping and right lower leg cramping. This been ongoing getting worse today. Patient continues to have vaginal discharges described as pinkish in color. Denies any foul-smelling discharge denies any fever denies any cough denies any abdominal pain denies any other complaints no medication was taken prior to ER visit. Ultrasound of the lower extremities negative for DVT patient's workup today all came back unremarkable ultrasound of the pelvis showed no acute pathology. Results discussed with the patient and patient was advised to follow-up with HEADER SETUP OPERATOR probably in 1 to 2 days. Patient agrees with the plan. Patient data External records reviewed:: None Clinical information provided by:: patient Social determinants that could affect healthcare access:: none Patient has the following chronic illnesses:: None How is presenting disease/condition affected by chronic disease/condition?: no chronic disease Evaluation data The following diagnostics were reviewed and interpreted by me:: lab results and radiology exam(s) Lab and/or radiology exams considered but not ordered:: None Interpretation Summary: See above Medications / Prescriptions Medications or Prescriptions considered but not ordered:: And Medication administrations:: None Consultations Consultation(s) initiated? (list below): No Diagnosis Differential diagnosis abdominal pain: other (Pelvic cramping, UTI, DVT, leg pain) Most likely diagnosis given after review of the tests above:: Pelvic cramping, leg pain, 1 week Admission Indicated Admission indicated?: not indicated Admission Request Was there a request for admission?: No Disposition Plan Disposition Plan: Discharge Discharge Attestation Discharge Attestation: The patient was given an opportunity to ask questions and understood the discharge instructions. Discharge instructions specifically effects, indications for sooner follow up or return to the emergency department, and the expected course of current diagnosis. Patient condition: Stable Discharge Plan Plan Patient Disposition: HOME (Self Care) Discharge Disposition comment: Stable Prescriptions/Referrals Prescriptions/Med Rec: No Action docusate sodium [Stool Softener] 100 mg capsule 100 mg PO QDAY 30 Days Qty: 30 0RF ibuprofen 600 mg tablet 600 mg PO Q6H MDD 4 PRN (Reason: fever or pain) 10 Days Qty: 40 0RF Referrals: Omer Wilhelm MD [Primary Care Provider, Family Practice] - In 1 week Problem List Clinical Impression: Pelvic cramping, Leg cramp Patient/Caregiver Discharge Instructions Discharge Activity: activity as tolerated Education Materials: Understanding the Pain Response Additional Instructions: Thank you for the opportunity for serving you today. You are stable for discharged . You are advised to: Follow-up with your HEADER SETUP OPERATOR in 1 to 2 days Return to ED for worsening of symptoms Increase oral fluids Take [id number] Motrin as needed for pain Print Language: Namibian Stand Alone Forms: Sharon Award Info., Patient Portal Info Letter RAVINDER/KARINA Supervising Physician RAVINDER/KARINA Supervising Physician: Md Magdiel
[2025-05-25 19:37] VITALS: BP 124/73; PULSE 85; RESP 17; TEMP 37.6; O2SAT 97
== END 2025-05-25 19:43 | disposition home or self-care (01) ==
PROVIDERS: Nurse Practitioner Primary Care; Emergency Provider Emergency Medicine; PCP Family Medicine
DX: O99.893 Other specified diseases and conditions complicating puerperium (principal); R10.20 Pelvic and perineal pain unspecified side; R25.2 Cramp and spasm
CPT/HCPCS: 36415; 76856; 80053; 85025; 93970; 99283